=== PATIENT | female | born 1990 | race African-American/Black ===

== ENCOUNTER 2024-07-12 14:33 | Emergency (ER) | payer OTHER, SELFPAY ==
[2024-07-12] VITALS (17 sets, daily range): BP systolic 110–145; BP diastolic 65–85; PULSE 59–82; RESP 15–24; TEMP 37; O2SAT 99–100; BMI 27.8
--- NOTE | 2024-07-12 14:47 | DI.RAD.S_ITS ---
PROCEDURE: XR CHEST 1V INDICATIONS: Chest Pain TECHNIQUE: One view of the chest was acquired. COMPARISON: None. FINDINGS: Surgical changes and devices: None. Lungs and pleura: Lungs are clear. No pleural effusions or pneumothorax. Mediastinum: Mediastinal contours appear normal. Heart size is normal. Bones and chest wall: No suspicious bony lesions. Overlying soft tissues appear unremarkable. IMPRESSION: No acute cardiopulmonary abnormality is seen. Dictated by: David Bradley M.D. on 07/12/2024 at 15:12 Approved by: David Bradley M.D. on 07/12/2024 at 15:18
--- NOTE | 2024-07-12 15:02 | EKG_ITS ---
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
[2024-07-12 15:19] LABS: Add Manual Diff / Slide Review NO; Basophils Absolute Auto 0 /uL (0-100); Basophils Percent Auto 0.6 % (0-2); Eosinophils Absolute Auto 0 /uL (0-450); Eosinophils Percent Auto 0.4 % (2-4); Hematocrit 42.2 % (36-46); Hemoglobin 14.1 g/dL (12.0-16.0); Lymphocytes Absolute Auto 2300 /uL (1100-4500); Lymphocytes Percent Auto 29.3 % (25-40); Mean Corpuscular HGB Conc 33.4 % (30-36); Mean Corpuscular Hemoglobin 28.3 PG (26-34); Monocytes Absolute Auto 500 /uL (0-900); Monocytes Percent Auto 6.9 % (3-14); Neutrophils Absolute Auto 5000 /uL (1500-7000); Neutrophils Percent Auto 62.8 % (50-75); Platelet Count 283 X10^3/uL (150-400); Red Blood Cell Count 4.97 X10^6/uL (4.0-5.2); Red Cell Distribution Width 12.7 % (11.6-14.8); White Blood Cell Count 7.9 X10^3/uL (4.5-11.0)
[2024-07-12 15:25] LABS: INR 0.9 (0.9-1.3); Prothrombin Time 10.7 SECONDS (9.4-12.5)
[2024-07-12 15:27] LABS: PTT Partial Thromboplastin Tim 34 SECONDS (25.1-36.5)
--- NOTE | 2024-07-12 15:29 | ED.CHESTPAIN ---
HPI - Chest Pain <Fadi Aguilar MD - Last Filed: 07/13/24 09:36> General Chief Complaint: Chest Pain Stated Complaint: Chest pain , SOB coming in waves today Time Seen by Provider: 07/12/24 15:22 Source: patient Mode of arrival: Ambulatory History of Present Illness HPI narrative: Corinne is a 33-year-old female who presented to the emergency department with chest pain and shortness of breath. She reports experiencing three episodes of chest pain today, each lasting about 20-25 minutes. The pain is described as a tightening sensation in the mid-chest area. She states that these episodes occurred while she was at rest and also while walking around a store. The patient has been experiencing shortness of breath for approximately two years, particularly with exertion such as climbing stairs. She mentions that others have noticed her being out of breath during phone conversations. The patient denies any history of asthma but reports occasional wheezing. The patient's medical history is significant for occasional high blood pressure readings, though she is not on any blood pressure medication. She had a chest X-ray about a year ago, which was reportedly normal. She denies any history of heart issues, pancreatitis, or diagnosed blood clots. The patient is currently menstruating and uses a low-dose 28-day oral contraceptive pill. She reports a family history of blood clots in her great grandmother. The patient denies smoking or recreational drug use. She occasionally consumes Red Bull energy drinks, with her last consumption being yesterday. She reports recent weight gain over the past few months and mentions that she feels like everything's swelling lately. The patient also experienced some nausea today but denies vomiting or abdominal pain. Related Data Previous Rx's Medication Instructions Recorded omeprazole 20 mg capsule,delayed 20 mg PO DAILY upper abdominal 07/12/24 release pain 30 days #30 caps Allergies Allergy/AdvReac Type Severity Reaction Status Date / Time No Known Drug Allergies Allergy Verified 07/12/24 15:34 Review of Systems <Faid Aguilar MD - Last Filed: 07/13/24 09:36> Review of Systems Narrative: All systems reviewed and unremarkable except as noted in the HPI Patient History <Fadi Aguilar MD - Last Filed: 07/13/24 09:36> Social History Smoking Status: Never smoker Smoking Status: Never smoker Exam <Fadi Aguilar MD - Last Filed: 07/13/24 09:36> Narrative Exam Narrative: VS as noted above Focused physical exam as follows: General: Well developed, well nourished, no acute distress HEENT: pink palpebral conjunctiva, anicteric sclera, ETIENNE, moist mucous membranes, no JVD, no cervical lymphadenopathy Lungs: no respiratory distress, clear to auscultation without wheezes or crackles; equal breath sounds Heart: normal rate, regular rhythm, no appreciable murmurs Abdomen: soft, nontender, no rebound or rigidity Musculoskeletal: no gross deformities with full ROM in all extremities, no pedal edema Skin: pink, warm; no rashes Neuro: AAOx3, GCS 15, nonfocal exam Psyche: no SI/HI, normal affect Initial Vital Signs Initial Vital Signs: Vital Signs Temperature 98.6 F 07/12/24 14:41 Pulse Rate 75 07/12/24 14:41 Respiratory Rate 20 07/12/24 14:41 Blood Pressure 124/85 07/12/24 14:41 Pulse Oximetry 100 07/12/24 14:41 Oxygen Delivery Method Room Air 07/12/24 14:41 <Surendra Schroeder MD - Last Filed: 07/13/24 04:43> Initial Vital Signs Initial Vital Signs: Vital Signs Temperature 98.6 F 07/12/24 14:41 Pulse Rate 75 07/12/24 14:41 Respiratory Rate 20 07/12/24 14:41 Blood Pressure 124/85 07/12/24 14:41 Pulse Oximetry 100 07/12/24 14:41 Oxygen Delivery Method Room Air 07/12/24 14:41 Course <Fadi Aguilar MD - Last Filed: 07/13/24 09:36> Course Course Narrative: Initial VS noted above. PMHx, PSHx, Medication list, social history reviewed as noted above. Differential diagnosis considered include (but not limited to) the following: ACS, cardiac dysrhythmia, PE, pericarditis, costochondritis, pneumonia, asthma, viral resp illness, CHF, hiatal hernia, gastritis, GERD, pancreatitis, cholelithiasis/cystitis, electrolyte imbalance, liver or kidney failure, anxiety, adverse effect/withdrawal from illicit drug/ETOH, hypo/hyperthyroidism Pt interviewed and examined. Bedside EKG showed no ST elevation or ectopy. ASA given while awaiting studies. Labs reviewed - elevated lipase but symptoms do not correlate with likely pancreatitis. Troponin and D-dimer both negative. CXR unremarkable. Transferred care to Dr. Schroeder @ 1800 with reassessment and disposition pending. Fadi Aguilar MD 07/12/24 1800 Orders Ordered: Discontinued Medications Aspirin (Aspirin 81 Mg Chew Tab) 324 mg PO NOW ONE Stop: 07/12/24 14:48 Last Admin: 07/12/24 19:45 Dose: Not Given Documented By: AB Vital Signs Vital signs: Vital Signs - 8 hr 07/12/24 21:29 Pulse Rate 68 Respiratory Rate 16 Blood Pressure 133/65 Pulse Oximetry 100 Oxygen Delivery Method Room Air <Surendra Schroeder MD - Last Filed: 07/13/24 04:43> Orders Ordered: Discontinued Medications Aspirin (Aspirin 81 Mg Chew Tab) 324 mg PO NOW ONE Stop: 07/12/24 14:48 Last Admin: 07/12/24 19:45 Dose: Not Given Documented By: AB Vital Signs Vital signs: Vital Signs - 8 hr 07/12/24 21:29 Pulse Rate 68 Respiratory Rate 16 Blood Pressure 133/65 Pulse Oximetry 100 Oxygen Delivery Method Room Air MDM - Chest Pain <Fadi Aguilar MD - Last Filed: 07/13/24 09:36> Lab Data 07/12/24 15:10 07/12/24 15:10 Labs: Lab Results 07/12/24 07/12/24 07/12/24 Range/Units 15:10 15:14 18:10 WBC 7.9 (4.5-11.0) X10^3/uL RBC 4.97 (4.0-5.2) X10^6/uL Hgb 14.1 (12.0-16.0) g/dL Hct 42.2 (36-46) % MCV 85.0 (80-100) fL MCH 28.3 (26-34) PG MCHC 33.4 (30-36) % RDW 12.7 (11.6-14.8) % Plt Count 283 (150-400) X10^3/uL Neut % (Auto) 62.8 (50-75) % Lymph % (Auto) 29.3 (25-40) % [place] % (Auto) 6.9 (3-14) % Eos % (Auto) 0.4 L (2-4) % Baso % (Auto) 0.6 (0-2) % Neut # (Auto) 5000 (1588-4350) /uL Lymph # (Auto) 2300 (3010-8279) /uL [place] # (Auto) 500 (0-900) /uL Eos # (Auto) 0 (0-450) /uL Baso # (Auto) 0 (0-100) /uL PT 10.7 (9.4-12.5) SECONDS INR 0.9 (0.9-1.3) APTT 34 (25.1-36.5) SECONDS D-Dimer 425 (<500) ng/ml Sodium 138 (137-145) mmol/L Potassium 4.0 (3.4-5.1) mmol/L Chloride 104 (98-107) mmol/L Carbon Dioxide 25 (22-32) mmol/L BUN 8 (7-17) mg/dL Creatinine 0.82 (0.52-1.04) mg/dL Estimated GFR > 60 (>60) mL/min BUN/Creatinine Ratio 9.8 (6-22) Glucose 97 (70-99) mg/dL Lactate 1.9 (0.7-2.1) mmol/L Calcium 9.9 (8.4-10.2) mg/dL Magnesium 1.6 (1.6-2.3) mg/dL Total Bilirubin 0.6 (0.2-1.3) mg/dL AST 33 (14-36) IU/L ALT 21 (<35) IU/L Alkaline Phosphatase 58 (38-126) U/L Total Creatine Kinase 77 (30-135) U/L Troponin I < 0.012 (0.01-0.034) ng/mL NT-Pro-B Natriuret Pep 23 (<125) pg/mL Total Protein 8.2 (6.3-8.2) g/dL Albumin 4.7 (3.5-5.0) g/dL Globulin 3.5 (1.7-4.1) g/dL Albumin/Globulin Ratio 1.3 (1.0-2.8) Lipase 656 H (23-300) U/L TSH 2.46 (0.47-4.68) uIU/mL HCG, Quant < 2.39 mIU/mL Urine Color Yellow Urine Appearance Clear Urine pH 6.0 (4.5-8.0) Ur Specific [place] 1.020 (1.000-1.035) Urine Protein Negative (Negative) Urine Glucose (UA) Negative (Negative) g/dL Urine Ketones Negative (NEGATIVE) Urine Occult Blood 2+ H (Negative) Urine Nitrate Negative (Negative) Urine Bilirubin Negative (NEGATIVE) Urine Urobilinogen 0.2 (0.2) E.U./dL Ur Leukocyte Esterase Negative (NEGATIVE) Urine RBC 1-5/hpf (0-5/HPF) Urine WBC None seen (0-5/HPF) Ur Squamous Epith Cells None seen (0-5/HPF) Urine Bacteria None seen (None) Ur Culture Indicated? Cult not indicated Vol Urine Centrifuged 10ml (spun) U Opiates 300ng/mL cut Negative (Negative) Ur Oxycodone Screen Negative (Negative) Urine Methadone Screen Negative (Negative) Ur Barbiturates Screen Negative (Negative) U Tricyclic Antidepress Negative (Negative) Ur Phencyclidine Scrn Negative (Negative) Ur Amphetamines Screen Negative (Negative) U Methamphetamines Scrn Negative (Negative) Ur MDMA Scrn (Ecstasy) Negative (Negative) U Benzodiazepines Scrn Negative (Negative) Urine Cocaine Screen Negative (Negative) U Marijuana (THC) Screen Negative (Negative) Urine Specific [place] (Normal) Ur Creatinine (Normal) 07/12/24 Range/Units 18:10 WBC (4.5-11.0) X10^3/uL RBC (4.0-5.2) X10^6/uL Hgb (12.0-16.0) g/dL Hct (36-46) % MCV (80-100) fL MCH (26-34) PG MCHC (30-36) % RDW (11.6-14.8) % Plt Count (150-400) X10^3/uL Neut % (Auto) (50-75) % Lymph % (Auto) (25-40) % [place] % (Auto) (3-14) % Eos % (Auto) (2-4) % Baso % (Auto) (0-2) % Neut # (Auto) (0400-2955) /uL Lymph # (Auto) (2654-3768) /uL [place] # (Auto) (0-900) /uL Eos # (Auto) (0-450) /uL Baso # (Auto) (0-100) /uL PT (9.4-12.5) SECONDS INR (0.9-1.3) APTT (25.1-36.5) SECONDS D-Dimer (<500) ng/ml Sodium (137-145) mmol/L Potassium (3.4-5.1) mmol/L Chloride (98-107) mmol/L Carbon Dioxide (22-32) mmol/L BUN (7-17) mg/dL Creatinine (0.52-1.04) mg/dL Estimated GFR (>60) mL/min BUN/Creatinine Ratio (6-22) Glucose (70-99) mg/dL Lactate (0.7-2.1) mmol/L Calcium (8.4-10.2) mg/dL Magnesium (1.6-2.3) mg/dL Total Bilirubin (0.2-1.3) mg/dL AST (14-36) IU/L ALT (<35) IU/L Alkaline Phosphatase (38-126) U/L Total Creatine Kinase (30-135) U/L Troponin I (0.01-0.034) ng/mL NT-Pro-B Natriuret Pep (<125) pg/mL Total Protein (6.3-8.2) g/dL Albumin (3.5-5.0) g/dL Globulin (1.7-4.1) g/dL Albumin/Globulin Ratio (1.0-2.8) Lipase (23-300) U/L TSH (0.47-4.68) uIU/mL HCG, Quant mIU/mL Urine Color Urine Appearance Urine pH Normal (4.5-8.0) Ur Specific [place] (1.000-1.035) Urine Protein (Negative) Urine Glucose (UA) (Negative) g/dL Urine Ketones (NEGATIVE) Urine Occult Blood (Negative) Urine Nitrate (Negative) Urine Bilirubin (NEGATIVE) Urine Urobilinogen (0.2) E.U./dL Ur Leukocyte Esterase (NEGATIVE) Urine RBC (0-5/HPF) Urine WBC (0-5/HPF) Ur Squamous Epith Cells (0-5/HPF) Urine Bacteria (None) Ur Culture Indicated? Vol Urine Centrifuged U Opiates 300ng/mL cut (Negative) Ur Oxycodone Screen (Negative) Urine Methadone Screen (Negative) Ur Barbiturates Screen (Negative) U Tricyclic Antidepress (Negative) Ur Phencyclidine Scrn (Negative) Ur Amphetamines Screen (Negative) U Methamphetamines Scrn (Negative) Ur MDMA Scrn (Ecstasy) (Negative) U Benzodiazepines Scrn (Negative) Urine Cocaine Screen (Negative) U Marijuana (THC) Screen (Negative) Urine Specific [place] Normal (Normal) Ur Creatinine Normal (Normal) Imaging Data Chest x-ray: Radiologist's Impression: IMPRESSION: No acute cardiopulmonary abnormality is seen. ECG Data Attestation: I personally reviewed and interpreted this ECG as follows: (1505 - NSR @ 71; no STTW changes; QTc 410) <Surendra Schroeder MD - Last Filed: 07/13/24 04:43> Lab Data Attestation: I reviewed the patient's lab results. Lab results narrative: White blood cell count 7900, hemoglobin 14.1, platelets adequate. Renal function normal. Glucose 97. Electrolytes unremarkable. Serum CO2 normal. Liver functions normal. Lipase 656 elevated. Serum hCG negative. UA negative. UDS negative. Troponin negative/unmeasurable. D-dimer 425 not elevated. BNP 23 not elevated. Labs: Lab Results 07/12/24 07/12/24 07/12/24 Range/Units 15:10 15:14 18:10 WBC 7.9 (4.5-11.0) X10^3/uL RBC 4.97 (4.0-5.2) X10^6/uL Hgb 14.1 (12.0-16.0) g/dL Hct 42.2 (36-46) % MCV 85.0 (80-100) fL MCH 28.3 (26-34) PG MCHC 33.4 (30-36) % RDW 12.7 (11.6-14.8) % Plt Count 283 (150-400) X10^3/uL Neut % (Auto) 62.8 (50-75) % Lymph % (Auto) 29.3 (25-40) % [place] % (Auto) 6.9 (3-14) % Eos % (Auto) 0.4 L (2-4) % Baso % (Auto) 0.6 (0-2) % Neut # (Auto) 5000 (9782-3791) /uL Lymph # (Auto) 2300 (1194-2555) /uL [place] # (Auto) 500 (0-900) /uL Eos # (Auto) 0 (0-450) /uL Baso # (Auto) 0 (0-100) /uL PT 10.7 (9.4-12.5) SECONDS INR 0.9 (0.9-1.3) APTT 34 (25.1-36.5) SECONDS D-Dimer 425 (<500) ng/ml Sodium 138 (137-145) mmol/L Potassium 4.0 (3.4-5.1) mmol/L Chloride 104 (98-107) mmol/L Carbon Dioxide 25 (22-32) mmol/L BUN 8 (7-17) mg/dL Creatinine 0.82 (0.52-1.04) mg/dL Estimated GFR > 60 (>60) mL/min BUN/Creatinine Ratio 9.8 (6-22) Glucose 97 (70-99) mg/dL Lactate 1.9 (0.7-2.1) mmol/L Calcium 9.9 (8.4-10.2) mg/dL Magnesium 1.6 (1.6-2.3) mg/dL Total Bilirubin 0.6 (0.2-1.3) mg/dL AST 33 (14-36) IU/L ALT 21 (<35) IU/L Alkaline Phosphatase 58 (38-126) U/L Total Creatine Kinase 77 (30-135) U/L Troponin I < 0.012 (0.01-0.034) ng/mL NT-Pro-B Natriuret Pep 23 (<125) pg/mL Total Protein 8.2 (6.3-8.2) g/dL Albumin 4.7 (3.5-5.0) g/dL Globulin 3.5 (1.7-4.1) g/dL Albumin/Globulin Ratio 1.3 (1.0-2.8) Lipase 656 H (23-300) U/L TSH 2.46 (0.47-4.68) uIU/mL HCG, Quant < 2.39 mIU/mL Urine Color Yellow Urine Appearance Clear Urine pH 6.0 (4.5-8.0) Ur Specific [place] 1.020 (1.000-1.035) Urine Protein Negative (Negative) Urine Glucose (UA) Negative (Negative) g/dL Urine Ketones Negative (NEGATIVE) Urine Occult Blood 2+ H (Negative) Urine Nitrate Negative (Negative) Urine Bilirubin Negative (NEGATIVE) Urine Urobilinogen 0.2 (0.2) E.U./dL Ur Leukocyte Esterase Negative (NEGATIVE) Urine RBC 1-5/hpf (0-5/HPF) Urine WBC None seen (0-5/HPF) Ur Squamous Epith Cells None seen (0-5/HPF) Urine Bacteria None seen (None) Ur Culture Indicated? Cult not indicated Vol Urine Centrifuged 10ml (spun) U Opiates 300ng/mL cut Negative (Negative) Ur Oxycodone Screen Negative (Negative) Urine Methadone Screen Negative (Negative) Ur Barbiturates Screen Negative (Negative) U Tricyclic Antidepress Negative (Negative) Ur Phencyclidine Scrn Negative (Negative) Ur Amphetamines Screen Negative (Negative) U Methamphetamines Scrn Negative (Negative) Ur MDMA Scrn (Ecstasy) Negative (Negative) U Benzodiazepines Scrn Negative (Negative) Urine Cocaine Screen Negative (Negative) U Marijuana (THC) Screen Negative (Negative) Urine Specific [place] (Normal) Ur Creatinine (Normal) 07/12/24 Range/Units 18:10 WBC (4.5-11.0) X10^3/uL RBC (4.0-5.2) X10^6/uL Hgb (12.0-16.0) g/dL Hct (36-46) % MCV (80-100) fL MCH (26-34) PG MCHC (30-36) % RDW (11.6-14.8) % Plt Count (150-400) X10^3/uL Neut % (Auto) (50-75) % Lymph % (Auto) (25-40) % [place] % (Auto) (3-14) % Eos % (Auto) (2-4) % Baso % (Auto) (0-2) % Neut # (Auto) (4446-0235) /uL Lymph # (Auto) (1828-4304) /uL [place] # (Auto) (0-900) /uL Eos # (Auto) (0-450) /uL Baso # (Auto) (0-100) /uL PT (9.4-12.5) SECONDS INR (0.9-1.3) APTT (25.1-36.5) SECONDS D-Dimer (<500) ng/ml Sodium (137-145) mmol/L Potassium (3.4-5.1) mmol/L Chloride (98-107) mmol/L Carbon Dioxide (22-32) mmol/L BUN (7-17) mg/dL Creatinine (0.52-1.04) mg/dL Estimated GFR (>60) mL/min BUN/Creatinine Ratio (6-22) Glucose (70-99) mg/dL Lactate (0.7-2.1) mmol/L Calcium (8.4-10.2) mg/dL Magnesium (1.6-2.3) mg/dL Total Bilirubin (0.2-1.3) mg/dL AST (14-36) IU/L ALT (<35) IU/L Alkaline Phosphatase (38-126) U/L Total Creatine Kinase (30-135) U/L Troponin I (0.01-0.034) ng/mL NT-Pro-B Natriuret Pep (<125) pg/mL Total Protein (6.3-8.2) g/dL Albumin (3.5-5.0) g/dL Globulin (1.7-4.1) g/dL Albumin/Globulin Ratio (1.0-2.8) Lipase (23-300) U/L TSH (0.47-4.68) uIU/mL HCG, Quant mIU/mL Urine Color Urine Appearance Urine pH Normal (4.5-8.0) Ur Specific [place] (1.000-1.035) Urine Protein (Negative) Urine Glucose (UA) (Negative) g/dL Urine Ketones (NEGATIVE) Urine Occult Blood (Negative) Urine Nitrate (Negative) Urine Bilirubin (NEGATIVE) Urine Urobilinogen (0.2) E.U./dL Ur Leukocyte Esterase (NEGATIVE) Urine RBC (0-5/HPF) Urine WBC (0-5/HPF) Ur Squamous Epith Cells (0-5/HPF) Urine Bacteria (None) Ur Culture Indicated? Vol Urine Centrifuged U Opiates 300ng/mL cut (Negative) Ur Oxycodone Screen (Negative) Urine Methadone Screen (Negative) Ur Barbiturates Screen (Negative) U Tricyclic Antidepress (Negative) Ur Phencyclidine Scrn (Negative) Ur Amphetamines Screen (Negative) U Methamphetamines Scrn (Negative) Ur MDMA Scrn (Ecstasy) (Negative) U Benzodiazepines Scrn (Negative) Urine Cocaine Screen (Negative) U Marijuana (THC) Screen (Negative) Urine Specific [place] Normal (Normal) Ur Creatinine Normal (Normal) Imaging Data CT scan - abdomen/pelvis: Radiologist's Impression: [address] [address] [address] Scan Report Signed Patient: Corinne Dodd MR#: [id number] : 1990 Acct:[id number] Age/Sex: 33 / F Date of Service: 07/12/24 Loc: ED Accession Number: [id number] Procedure: CT abdomen pelvis w con Ordering Provider: Surendra Schroeder MD PROCEDURE: CT ABDOMEN PELVIS W CON INDICATIONS: lipase elevated, chest pain TECHNIQUE: After the administration of intravenous contrast, axial sections acquired from the lung bases to the pubic symphysis. Coronal and sagittal reformats were performed. For radiation dose reduction, the following was used: automated exposure control, adjustment of mA and/or kV according to patient size. COMPARISON: None. FINDINGS: Image quality: Diagnostic. Lower Chest: No significant findings. ABDOMEN: Liver: No solid mass. Gallbladder: No radiopaque gallstones or wall thickening. Biliary ducts: No biliary dilation. Pancreas: No ductal dilation. No discrete pancreatic lesion or peripancreatic inflammatory changes. Spleen: Size is within normal limits. Adrenal Glands: No adrenal nodules. Kidneys and Ureters: No hydronephrosis. No solid mass. No complex renal cystic lesion which requires follow up. Stomach and Bowel: There is no bowel obstruction. No gastric wall thickening. Mild small bowel wall thickening and enhancement with fluid filling the small bowel lumen concerning for enteritis. Appendix is visualized in right lower quadrant and is within normal limits. No colonic wall thickening. No abscess collection. Peritoneum: No abnormal intraperitoneal fluid. No free air. Ventral Wall: No significant ventral hernia. Abdominal Nodes: No retroperitoneal or mesenteric adenopathy by size criteria. Vessels: Aorta and inferior vena cava are normal in size. PELVIS: Pelvic Organs: Unremarkable. Bladder: No bladder wall thickening, accounting for underdistention. Pelvic Nodes: No enlarged lymph nodes. Miscellaneous: No inguinal hernias are seen. Bones: No aggressive osseous abnormality. IMPRESSION: 1. Normal appearing pancreas. No peripancreatic inflammatory changes or discrete pancreatic lesion. 2. Mild fluid filling of the small bowel loops with small bowel wall thickening and enhancement concerning for low-grade enteritis. 3. No bowel obstruction. No other area of abnormal bowel wall thickening. Normal appendix. No free fluid or free air. Dictated by: Germán So M.D. on 07/12/2024 at 19:44 Approved by: Germán So M.D. on 07/12/2024 at 19:47 [facility] Narrative Medical decision making narrative: 07/12/24, 1830Alexandre. Signout from Dr Aguilar. 33-year-old female with longstanding shortness of breath, today had intermittent episodes of chest pain, lasting a proximally 20 minutes, no known coronary artery disease, does take OCPs, D-dimer negative. Lipase mild elevation 700s noted, normal LFTs. Chest x-ray negative. CT abdomen and pelvis to be ordered, results pending. Assumed care. EKG without obvious ischemic changes. Normal sinus rhythm rate of 71, no obvious ST segment elevation or depression changes. T-wave inversion lead 3 but upright another contiguous inferior leads 2 and F noted. NC 108, QRS 78, QTC 410. Lab data: White blood cell count 7900, hemoglobin 14.1, platelets adequate. Renal function normal. Glucose 97. Electrolytes unremarkable. Serum CO2 normal. Liver functions normal. Lipase 656 elevated. Serum hCG negative. UA negative. UDS negative. Troponin negative/unmeasurable. D-dimer 425 not elevated. BNP [address] abdomen and pelvis. IMPRESSION: 1. Normal appearing pancreas. No peripancreatic inflammatory changes or discrete pancreatic lesion. 2. Mild fluid filling of the small bowel loops with small bowel wall thickening and enhancement concerning for low-grade enteritis. 3. No bowel obstruction. No other area of abnormal bowel wall thickening. Normal appendix. No free fluid or free air. See radiology report. Doubt ACS. Unclear significance of lipase elevation, no pancreatic lesions or inflammatory changes. Possible enteritis by imaging but patient has had no loose stools or abdominal cramping. Patient given a copy of her CT report with discussion of the results. Consider repeat lipase blood testing in follow up. Consider SARAHI, consider course of omeprazole antacid in the next couple of weeks. Recheck with her regular doctor advised early next week, further testing and evaluation as an outpatient for now. Discharged home with family. Return precautions discussed. Discharge Plan Departure Patient Disposition: Home Clinical Impression: Chest pain, Elevated lipase, Enteritis Instructions: DI for Atypical Chest Pain Activity Restrictions/Additional Instructions: Chest discomfort of unclear cause. EKG and blood tests not suggestive of heart attack at this time. Elevated lipase blood test noted, prompting CT evaluation of your abdomen and pelvis. There was no inflammatory changes to your pancreas or pancreatic lesions that might be responsible for the lipase elevation. There was some slight inflammatory change without obstruction to your small bowel, possible enteritis symptoms, though you did not endorse any symptoms of diarrhea or nausea or vomiting. Consider trial of omeprazole type [id number] antacid, if your chest discomfort symptoms might be acid related such as gastroesophageal reflux. Doubt acute coronary syndrome at this time. Further workup as an outpatient for now. Recheck with your doctor early next week, consider repeat lipase test to make sure it is resolved and not increasing. Further evaluation of your chest discomfort symptoms as an outpatient for now. Return to this/nearest emergency department for any change worsening symptoms or any concerns prior. Prescriptions: New omeprazole 20 mg capsule,delayed release(DR/EC) 20 mg PO DAILY 30 Days Qty: 30 0RF Referrals: ProviderMonik [Primary Care Provider] - Stand Alone Forms: Patient Portal/API/Survey
[2024-07-12 15:30] LABS: Lactate (Lactic Acid) 1.9 mmol/L (0.7-2.1)
[2024-07-12 15:32] LABS: Alanine Aminotransferase 21 IU/L (<35); Albumin 4.7 g/dL (3.5-5.0); Albumin Globulin Ratio 1.3 (1.0-2.8); Alkaline Phosphatase 58 U/L (38-126); Aspartate Aminotransferase 33 IU/L (14-36); BUN Creatinine Ratio 9.8 (6-22); Bilirubin Total 0.6 mg/dL (0.2-1.3); Blood Urea Nitrogen 8 mg/dL (7-17); Calcium 9.9 mg/dL (8.4-10.2); Carbon Dioxide 25 mmol/L (22-32); Chloride 104 mmol/L (98-107); Creatine Kinase 77 U/L (30-135); Estimated Glomerular Filt Rate > 60 mL/min (>60); Globulin 3.5 g/dL (1.7-4.1); Glucose 97 mg/dL (70-99); HEMOLYSIS 43 (0-50); Lipase 656 U/L (23-300); Magnesium 1.6 mg/dL (1.6-2.3); Sodium 138 mmol/L (137-145); Total Protein 8.2 g/dL (6.3-8.2)
--- NOTE | 2024-07-12 15:36 | PC.NURSE ---
iv placed by another nurse
[2024-07-12 15:43] LABS: NT-proBNP (BNP-Adult 18+) 23 pg/mL (<125); Troponin I < 0.012 ng/mL (0.01-0.034)
[2024-07-12 15:53] LABS: D Dimer 425 ng/ml (<500)
[2024-07-12 16:12] LABS: HCG Quantitative /Beta subunit < 2.39 mIU/mL
[2024-07-12 16:25] LABS: Thyroid Stimulating Hormone 2.46 uIU/mL (0.47-4.68)
[2024-07-12 18:21] LABS: Ur Creatinine Normal (Normal); Ur Specific Gravity Normal (Normal); Urine pH Normal (Normal)
[2024-07-12 18:22] LABS: UR Morphine/Opiate cutoff 300 Negative (Negative); Urine Amphetamines Negative (Negative); Urine Barbiturates Negative (Negative); Urine Benzodiazepines Negative (Negative); Urine Cocaine Negative (Negative); Urine MDMA Negative (Negative); Urine Methadone Negative (Negative); Urine Methamphetamines Negative (Negative); Urine Oxycodone Negative (Negative); Urine Phencyclidine Negative (Negative); Urine Tetrahydrocannabinol Negative (Negative); Urine Tricyclic Antidepressant Negative (Negative)
--- NOTE | 2024-07-12 18:46 | DI.CT.S_ITS ---
PROCEDURE: CT ABDOMEN PELVIS W CON INDICATIONS: lipase elevated, chest pain TECHNIQUE: After the administration of intravenous contrast, axial sections acquired from the lung bases to the pubic symphysis. Coronal and sagittal reformats were performed. For radiation dose reduction, the following was used: automated exposure control, adjustment of mA and/or kV according to patient size. COMPARISON: None. FINDINGS: Image quality: Diagnostic. Lower Chest: No significant findings. ABDOMEN: Liver: No solid mass. Gallbladder: No radiopaque gallstones or wall thickening. Biliary ducts: No biliary dilation. Pancreas: No ductal dilation. No discrete pancreatic lesion or peripancreatic inflammatory changes. Spleen: Size is within normal limits. Adrenal Glands: No adrenal nodules. Kidneys and Ureters: No hydronephrosis. No solid mass. No complex renal cystic lesion which requires follow up. Stomach and Bowel: There is no bowel obstruction. No gastric wall thickening. Mild small bowel wall thickening and enhancement with fluid filling the small bowel lumen concerning for enteritis. Appendix is visualized in right lower quadrant and is within normal limits. No colonic wall thickening. No abscess collection. Peritoneum: No abnormal intraperitoneal fluid. No free air. Ventral Wall: No significant ventral hernia. Abdominal Nodes: No retroperitoneal or mesenteric adenopathy by size criteria. Vessels: Aorta and inferior vena cava are normal in size. PELVIS: Pelvic Organs: Unremarkable. Bladder: No bladder wall thickening, accounting for underdistention. Pelvic Nodes: No enlarged lymph nodes. Miscellaneous: No inguinal hernias are seen. Bones: No aggressive osseous abnormality. IMPRESSION: 1. Normal appearing pancreas. No peripancreatic inflammatory changes or discrete pancreatic lesion. 2. Mild fluid filling of the small bowel loops with small bowel wall thickening and enhancement concerning for low-grade enteritis. 3. No bowel obstruction. No other area of abnormal bowel wall thickening. Normal appendix. No free fluid or free air. Dictated by: Germán So M.D. on 07/12/2024 at 19:44 Approved by: Germán So M.D. on 07/12/2024 at 19:47
[2024-07-12 19:46] LABS: Appearance Urine UA CLEAR; Bilirubin Urine UA NEGATIVE (NEGATIVE); Color Urine UA YELLOW; Glucose Urine UA NEGATIVE (Negative); Ketones Urine UA NEGATIVE (NEGATIVE); Leukocyte Esterase Urine UA NEGATIVE (NEGATIVE); Nitrite Urine UA NEGATIVE (Negative); Occult Blood Urine UA 2+ (Negative); Protein Urine UA NEGATIVE (Negative); Urobilinogen Urine UA 0.2 E.U./dL (0.2)
[2024-07-12 19:50] LABS: Urine Volume 10mL (spun)
[2024-07-12 19:52] LABS: Bacteria Urine None Seen; Culture Indicated Urine Cult Not Indicated; RBC Urine 1-5/HPF (0-5/HPF); Squamous Epithelial Cell Urine None Seen (0-5/HPF); WBC Urine None Seen (0-5/HPF)
== END 2024-07-12 21:35 | disposition home or self-care (01) ==
PROVIDERS: Emergency Medicine; Emergency Provider Emergency Medicine
DX: R07.9 Chest pain, unspecified (principal); R06.02 Shortness of breath; K52.9 Noninfective gastroenteritis and colitis, unspecified; R74.8 Abnormal levels of other serum enzymes
CPT/HCPCS: 36415; 71045; 74177; 80053; 80305; 81003; 81015; 82550; 83605; 83690; 83735; 83880; 84443; 84484; 84702; 85025; 85379; 85610; 85730; 93005; 93010; 99283; 99284; Q9967

== ENCOUNTER → 2025-02-08 13:38 | Outpatient (CLI) | payer OTHER, SELFPAY ==
--- NOTE | 2025-02-08 13:39 | DI.NM.S_ITS ---
PROCEDURE: NM EXERCISE TREADMILL NON NUC COMPARISON: None. INDICATIONS: Chest pain FINDINGS: The patient exercised for 6 minutes and 40 seconds reaching 85% of max predicted heart rate. Appriopriate BP response to exercise. Mildly reduced exercise capacity (7.0METs, CYNTHIA +26%). Chest pain noted around 5 minutes into exercise. Mild horizontal ST depressions in the anterolateral and inferior leads. No ectopy present. IMPRESSION: Abnormal treadmill ECG only stress test. Chest pain noted around 5 minutes into exercise. Mild horizontal ST depressions in the anterolateral and inferior leads. Mildly reduced exercise capacity (CYNTHIA 7.0 METs, CYNTHIA +26%). Recommend further evaluation with stress echo or angiography (CT vs cath)- correlate clinically. Dictated by: Julia Squires MD on 02/09/2025 at 13:45 Approved by: Julia Squires MD on 02/09/2025 at 13:48
--- NOTE | 2025-02-08 13:39 | DI.ECHO.S_ITS ---
[facility]+ [facility] : : [id number] : : [place] : : [id number] : : Phone: [phone] Echocardiogram Report + + :Name: ABEL LOMBARDO Study Date: 02/08/2025 Height: 60 in : :[facility] ReadingLocation: Weight: 137 lb : : Gender: Female BSA: 1.6 m2 : :: 1990 Age: 34 yrs BP: 120/80 mmHg: :Reason For Study: Chest pain : :Ordering Physician: SARITA SO Performed By: Paulino Levin : :Referring: SARITA SO : + + Interpretation Summary - The left ventricular contractility is normal. Estimated ejection fraction is greater than 60% with no segmental wall motion abnormalities. No LVH. Unable to comment on diastolic function. - The right ventricular contractility is normal. - All cardiac chambers are normal size. - Mild tricuspid regurgitation with estimated pulm systolic artery pressures of 25 mmHg. - No obvious intracardiac shunts. - No obvious intracardiac masses or thrombi. - No hemodynamically significant pericardial effusion. - Low right-sided filling pressures. Conclusion: Normal biventricular function with mild tricuspid regurgitation and no evidence of pulmonary hypertension. Procedure: A two-dimensional transthoracic echocardiogram with color flow and Doppler was performed. The study quality was technically adequate. There is no prior echocardiogram noted for this patient. The patient was in normal sinus rhythm during the exam. Left Ventricle: The left ventricle is normal in size and wall thickness. Left ventricular systolic function is normal. The ejection fraction is estimated to be 60-65%. There are no focal wall motion abnormalities. Normal diastolic function. Right Ventricle: The right ventricle is normal in size and function. Atria: The left atrial size is normal. Right atrial size is normal. There is no Doppler evidence for an interatrial shunt. Mitral Valve: The mitral valve leaflets appear to open well. There is no evidence of mitral valve prolapse. There is no mitral valve stenosis. There is no mitral regurgitation. Aortic Valve: The aortic valve is trileaflet. There is no aortic valve stenosis. No aortic regurgitation is present. Tricuspid Valve: The tricuspid valve leaflets are thin and pliable. There is mild tricuspid regurgitation. The right ventricular systolic pressure is estimated to be at least 25 mmHg based on an estimated right atrial pressure of 3 mm Hg. Pulmonic Valve: The pulmonic valve leaflets are thin and pliable; valve motion is normal. There is a trace or physiologic amount of pulmonic regurgitation. Great Vessels: The aortic root is normal size. The ascending aorta is normal in size. The aortic arch is normal in size. The pulmonary artery is normal size. The IVC is of normal diameter and collapses greater than 50% with a sniff. This suggests a low right atrial pressure of 3 mm Hg. Pericardium/ Pleura There is no pericardial effusion. MMode/2D Measurements & Calculations LVIDd: 4.1 cm LVOT diam: 1.9 cm LVIDs: 2.5 cm Ao root diam: 2.8 cm FS: 38.9 % asc Aorta Diam: 2.6 cm IVSd: 0.79 cm Ao Arch Diam (Prox Trans): 1.9 cm LVPWd: 0.77 cm LV bolanos. diameter/BSA (cm/m^2): 2.6 LV sys. diameter/BSA (cm/m^2): 1.6 LA A2 area: 15.5 cm2 RA long axis: 4.1 cm LA A4 area: 14.6 cm2 RA area: 12.7 cm2 LA length (vol): 5.1 cm RA vol: 33.3 ml LA vol: 37.3 ml RA : 20.9 ml/m2 LA vol index: 23.5 ml/m2 IVC diam: 1.9 cm RVD1 (basal): 3.3 cm RVD2 (mid): 2.8 cm TAPSE: 2.8 cm Doppler Measurements & Calculations Ao V2 max: 150.3 cm/sec LVOT Max Sujit: 125.1 cm/sec Ao V2 mean: 103.4 cm/sec LV V1 max P.3 mmHg Ao max P.0 mmHg LV V1 VTI: 24.1 cm Ao mean P.9 mmHg HARMEET(I,D): 2.3 cm2 Ao V2 VTI: 28.9 cm HARMEET(V,D): 2.3 cm2 sev ratio: 0.83 HARMEET indexed to BSA (cm^2/m^2): 1.4 MV E max sujit: 84.3 cm/sec TR max sujit: 234.0 cm/sec MV A max sujit: 40.8 cm/sec TR max P.0 mmHg MV E/A: 2.1 PA V2 max: 114.5 cm/sec MV dec time: 0.22 sec PA V2 mean: 76.7 cm/sec PA mean P.7 mmHg PA pr(Accel): 25.1 mmHg SV(LVOT): 65.9 ml Qp/Qs (V,Ao): 1.0/3.3 Qp/Qs (V,LVOT): 1.0/1.2 Reading Physician:LUAN
== END ==
LOC: ECHO 13:39
PROVIDERS: Referring Provider Internal Medicine; Visit Provider Internal Medicine
DX: I07.1 Rheumatic tricuspid insufficiency (principal); R07.9 Chest pain, unspecified; R94.39 Abnormal result of other cardiovascular function study
CPT/HCPCS: 93017; 93306